=== PATIENT | male | born 1980 | race Caucasian/White ===

== ENCOUNTER 2024-08-06 06:29 | Day surgery (SDC) | payer OTHER, SELFPAY | END 2024-08-06 15:03 | disposition home or self-care (01) | LOC: GI 06:29 | PROVIDERS: ATTENDING PHYSICIAN Internal Medicine | DX: Z12.11 Encounter for screening for malignant neoplasm of colon (principal); D12.5 Benign neoplasm of sigmoid colon; K63.5 Polyp of colon; K55.20 Angiodysplasia of colon without hemorrhage; K64.8 Other hemorrhoids; Z83.719 Family history of colon polyps, unspecified | CPT/HCPCS: 45385; 88305 ==